=== PATIENT | male | born 1990 | race Caucasian/White ===

== ENCOUNTER 2021-07-28 19:20 | Observation (INO) ==
[2021-07-28] MEDS ORDERED: NS 0.9% 1000 ml BAG 1,000 ML IV ONE (20:07)
[2021-07-28 20:17] LABS: ABS Lymphocytes 2.4 10^3/ul (1.0-4.8); ABS Monocytes 0.6 10^3/ul (0-0.8); ABS Neutrophils 4.5 10^3/ul (1.5-7.7); Eosinophil % 0.4 %; Hematocrit 44 % (42-52); Hemoglobin 15.9 g/dL (14.0-18.0); Lymphocyte % 31.6 %; Mean Corpuscular HGB Conc 36 g/dL (31-36); Mean Corpuscular Hemoglobin 31 pg (27-31); Mean Corpuscular Volume 87 fL (80-94); Mean Platelet Volume 7.1 fL (7.4-10.4); Nucleated Red Blood Cells % 0.1; Platelet Count 249 10^3/uL (150-450); Red Blood Count 5.09 10^6 /uL (4.18-5.48); Red Cell Distribution Width 13 % (10-15); White Blood Count 7.6 10^3/uL (3.5-10.8)
[2021-07-28 21:02] LABS: Albumin 4.5 g/dL (3.2-5.2); Anion Gap 6 mmol/L (2-11); CO2 Carbon Dioxide 29 mmol/L (22-32); Calcium 9.9 mg/dL (8.6-10.3); Chloride 104 mmol/L (101-111); Magnesium 1.9 mg/dL (1.9-2.7); Potassium 4.3 mmol/L (3.5-5.0); Sodium 139 mmol/L (135-145)
[2021-07-28 21:07] LABS: ALT 42 U/L (7-52); AST 35 U/L (13-39); Albumin/Globulin Ratio 1.7 (1-3); Alkaline Phosphatase 53 U/L (35-149); Blood Urea Nitrogen 13 mg/dL (6-24); Globulin 2.6 g/dL (2-4); Glucose 99 mg/dL (70-100); Total Protein 7.1 g/dL (6.4-8.9); eGFR CKD-EPI 85.1 (>60)
[2021-07-28 21:10] LABS: Troponin I 0.03 ng/mL (<0.03)
[2021-07-28 21:15] LABS: TSH Ultra Thyroid Stim Horm 2.36 mcIU/mL (0.34-5.60)
[2021-07-29 06:39] LABS: ABS Eosinophils 0.1 10^3/ul (0-0.6); ABS Lymphocytes 2.4 10^3/ul (1.0-4.8); ABS Monocytes 0.6 10^3/ul (0-0.8); ABS Neutrophils 2.3 10^3/ul (1.5-7.7); Eosinophil % 1.4 %; Hematocrit 44 % (42-52); Hemoglobin 15.4 g/dL (14.0-18.0); Lymphocyte % 44.1 %; Mean Corpuscular HGB Conc 35 g/dL (31-36); Mean Corpuscular Hemoglobin 31 pg (27-31); Mean Corpuscular Volume 89 fL (80-94); Mean Platelet Volume 7.1 fL (7.4-10.4); Platelet Count 214 10^3/uL (150-450); Red Cell Distribution Width 13 % (10-15); White Blood Count 5.5 10^3/uL (3.5-10.8)
[2021-07-29 07:18] LABS: Albumin/Globulin Ratio 1.7 (1-3); Calcium 9.2 mg/dL (8.6-10.3); Globulin 2.3 g/dL (2-4); Magnesium 1.9 mg/dL (1.9-2.7); Potassium 4.2 mmol/L (3.5-5.0); Total Bilirubin 0.8 mg/dL (0.2-1.0); Total Protein 6.3 g/dL (6.4-8.9); eGFR CKD-EPI 90.6 (>60)
[2021-07-29] MEDS ORDERED: Magnesium Sulfate IV 1GM/100ML 1 GM/100 ML BAG IV ONE (07:43)
[2021-07-29] MEDS ORDERED: LORazepam 2 mg VIAL 1 ml ONE (08:04)
[2021-07-29] MEDS ORDERED: NS 0.9% 1000 ml BAG 1,000 ML IV ONE (08:08)
[2021-07-29] MEDS ORDERED: LORazepam 2 mg VIAL 1 ml IV PUSH ONE (08:09)
[2021-07-29 12:25] VITALS: BP 120/58
== END 2021-07-29 12:24 | disposition home or self-care (01) ==
LOC: ED 19:20 → EDHOLD 19:20 → SUATTDRO 07-29 01:01 → EDHOLD 07-29 01:01 → ED 07-29 12:23
PROVIDERS: ADMIT Family Medicine; ATTEND Family Medicine